=== PATIENT | female | born 1985 | race Caucasian/White ===

== ENCOUNTER 2022-03-21 07:34 | Outpatient (CLI) | payer OTHER, SELFPAY ==
[2022-03-21 10:25] LABS: Albumin* 4.1 g/dL (3.3-5.0)
[2022-03-21 10:26] LABS: Chloride* 108 mmol/L (96-114); Potassium* 4.3 mmol/L (3.6-5.1); Sodium* 138 mmol/L (135-149)
[2022-03-21 10:28] LABS: Aspartate Amino Transferase* 20 U/L (12-35); Bilirubin Total* 0.5 mg/dL (0.1-1.5); Carbon Dioxide* 21 mmol/L (20-32); Cholesterol* 143 mg/dL (90-199); Creatinine* 0.5 mg/dL (0.5-1.5); Estimated Glomerular Filt Rate 126 ml/min
[2022-03-21 10:29] LABS: Alanine Aminotransferase* 17 U/L (4-35); Alkaline Phosphatase* 80 U/L (40-150); Blood Urea Nitrogen* 10 mg/dL (5-24); Calcium* 9.1 mg/dL (8.4-10.6); Glucose* 96 mg/dL (60-115); HDL Cholesterol* 74 mg/dL (>=50); LDL Cholesterol Calculated 62 mg/dL (<100); Triglycerides* 34 mg/dL (40-149)
[2022-03-21 11:53] LABS: Chlamydia DNA Amplified* NOT DETECTED (No Detected); GC DNA Amplified* NOT DETECTED (No Detected)
== END 2022-03-21 07:35 | disposition home or self-care (01) ==
PROVIDERS: PCP Family Medicine; Visit Provider Family Medicine
DX: Z01.419 Encounter for gynecological examination (general) (routine) without abnormal findings (principal); R53.83 Other fatigue; E03.9 Hypothyroidism, unspecified; N89.8 Other specified noninflammatory disorders of vagina; E66.01 Morbid (severe) obesity due to excess calories; F41.9 Anxiety disorder, unspecified
CPT/HCPCS: 80053; 80061; 84443; 87491; 87591

== ENCOUNTER 2023-03-12 15:30 | Outpatient (CLI) | payer OTHER, SELFPAY | END 2023-03-12 15:31 | disposition home or self-care (01) | LOC: NFLDREF 03-14 10:27 | PROVIDERS: PCP Family Medicine; Referring Provider Family Medicine; Visit Provider Family Medicine | DX: E03.9 Hypothyroidism, unspecified (principal); R53.83 Other fatigue; F41.9 Anxiety disorder, unspecified; B39.9 Histoplasmosis, unspecified; H32 Chorioretinal disorders in diseases classified elsewhere; E66.01 Morbid (severe) obesity due to excess calories; Z68.42 Body mass index [BMI] 45.0-49.9, adult; Z13.220 Encounter for screening for lipoid disorders; Z13.1 Encounter for screening for diabetes mellitus; Z13.6 Encounter for screening for cardiovascular disorders | CPT/HCPCS: 80061; 82947; 84443 ==

== ENCOUNTER 2024-04-16 15:00 | Outpatient (CLI) | payer BC, SELFPAY | END 2024-04-16 15:01 | disposition home or self-care (01) | LOC: NFLDREF 04-25 23:47 | PROVIDERS: PCP Family Medicine; Referring Provider Family Medicine; Visit Provider Family Medicine | DX: E03.9 Hypothyroidism, unspecified (principal); R53.83 Other fatigue; E78.5 Hyperlipidemia, unspecified; Z13.6 Encounter for screening for cardiovascular disorders | CPT/HCPCS: 80053; 80061; 84443 ==

== ENCOUNTER 2024-11-23 13:25 | Outpatient (CLI) | payer BC, SELFPAY ==
--- NOTE | 2024-11-23 13:45 | CRLHL7_ITS ---
For Patients: As a result of the Century Cures Act, medical imaging exams and procedure reports are released immediately into your electronic medical record. You may view this report before your referring provider. If you have questions, please contact your health care provider. INDICATION: Abnormal uterine bleeding COMPARISON: None. TECHNIQUE: 2D liang-scale and color Doppler images were acquired of the pelvis using a transabdominal and transvaginal approach. Transvaginal imaging performed to better visualize the endometrial stripe and ovaries. FINDINGS: Sonographic images demonstrate a normal size and smooth outer contour of the uterus. Uterus measures 8.5 cm in length by 4.4 cm in AP diameter by 5.7 cm in transverse dimension. The myometrium has a normal uniform echotexture. The endometrial lining measures 9 mm in composite thickness. The right ovary measures 3.0 x 1.7 x 2.1 cm in size and the left ovary measures 4.8 x 2.6 x 3.6 cm. The ovaries demonstrate normal arterial and venous blood flow on color Doppler analysis. Trace free fluid. Simple circumscribed left ovarian cyst measures 4.8 x 2.6 x 3.6 cm. IMPRESSION: Endometrial thickness 9 millimeters. Simple left ovarian cyst measures 4.8 cm. Dictated by Nitin Stanford MD @ 11/23/2024 3:51:23 PM (Electronically Signed)
== END 2024-11-23 13:26 | disposition home or self-care (01) ==
LOC: US 13:26
PROVIDERS: PCP Family Medicine; Visit Provider Obstetrics & Gynecology
DX: N93.9 Abnormal uterine and vaginal bleeding, unspecified (principal); R93.89 Abnormal findings on diagnostic imaging of other specified body structures; N83.292 Other ovarian cyst, left side; N97.9 Female infertility, unspecified
CPT/HCPCS: 76830; 76856

== ENCOUNTER 2024-12-23 15:29 | Outpatient (CLI) | payer BC, SELFPAY | END 2024-12-23 15:30 | disposition home or self-care (01) | PROVIDERS: PCP Family Medicine; Visit Provider Obstetrics & Gynecology | DX: N97.9 Female infertility, unspecified (principal); N93.9 Abnormal uterine and vaginal bleeding, unspecified | CPT/HCPCS: 82670; 83001; 83498; 84146; 84270; 84402; 84403; 84443 ==

== ENCOUNTER 2024-12-30 10:44 | Outpatient (CLI) | payer BC, SELFPAY ==
--- NOTE | 2024-12-30 11:15 | CRLHL7_ITS ---
For Patients: As a result of the Century Cures Act, medical imaging exams and procedure reports are released immediately into your electronic medical record. You may view this report before your referring provider. If you have questions, please contact your health care provider. Indication: Infertility Technique: Routine hysterosalpingogram performed. Fluoroscopic time 27 seconds. IMPRESSION: Normal patency of the fallopian tubes bilaterally. No endometrial canal filling defect. Normal exam. Dictated by Nitin Stanford MD @ 12/30/2024 12:43:45 PM (Electronically Signed)
--- NOTE | 2024-12-30 12:18 | P.GYNPRC_ITS ---
Procedure Note Time Seen by Provider: 11:30 Date of procedure: 12/30/24 [address] [facility] bill your pro fee for this procedure?: Yes Procedure Description: DATE: 12/30/24 PREPROCEDURE DIAGNOSIS: Secondary infertility POSTPROCEDURE DIAGNOSIS: 1. Secondary Infertility 2. Patent fallopian tubes bilaterally. NAME OF PROCEDURE: Hysterosalpingogram. ANESTHESIA: None. COMPLICATIONS: None. PROCEDURE: After obtaining verbal consent, the patient was placed in the dorsal lithotomy position on the x-ray table. An open-sided bivalve speculum was introduced into the vagina and the cervix easily visualized. The cervix and vagina were then prepped with Betadine. The anterior lip of the cervix was grasped with a single-tooth tenaculum for traction. Os binder/cervical dilator used: No. A balloon tipped double-lumen catheter was then gently inserted through the cervical opening into the uterine cavity to the level of the fundus. The balloon was insufflated with 3 mL of air. The tenaculum and speculum were removed. The patient was repositioned in the supine position, covered, and the radiologist was called to the room. A hysterosalpingogram was then performed. A total of 20 cc of Optiray 300 water soluble contrast dye was injected through the double-lumen catheter under moderate pressure. There was immediate fill of the uterine cavity to the cornua and immediate fill of both fallopian tubes and free spillage of dye on both sides The balloon was deflated. The catheter was removed. The patient tolerated the procedure well, though she did have moderate cramping discomfort during and just after the procedure. She was discharged to home in stable condition and make an appointment with her physician to review all of her lab results and procedure results.
== END 2024-12-30 10:45 | disposition home or self-care (01) ==
LOC: RAD 10:45
PROVIDERS: PCP Family Medicine; Visit Provider Obstetrics & Gynecology
DX: N97.9 Female infertility, unspecified (principal)
CPT/HCPCS: 58340; 74740; A4649; Q9967

== ENCOUNTER 2025-01-07 14:47 | Outpatient (CLI) | payer BC, SELFPAY ==
--- NOTE | 2025-01-07 15:00 | CRLHL7_ITS ---
For Patients: As a result of the Century Cures Act, medical imaging exams and procedure reports are released immediately into your electronic medical record. You may view this report before your referring provider. If you have questions, please contact your health care provider. INDICATION: Excessive and frequent menstruation COMPARISON: 11/23/2024 TECHNIQUE: 2D liang-scale and color Doppler images were acquired of the pelvis using a transabdominal and transvaginal approach. Transvaginal imaging performed to better visualize the endometrial stripe and ovaries. FINDINGS: Sonographic images demonstrate a normal size and smooth outer contour of the uterus. Uterus measures 8.8 cm in length by 5.0 cm in AP diameter by 5.9 cm in transverse dimension. The myometrium has a normal uniform echotexture. The endometrial lining measures 16 mm in composite thickness. The right ovary measures 3.5 x 1.9 x 2.2 cm in size and the left ovary measures 4.5 x 2.5 x 2.9 cm. The ovaries demonstrate normal arterial and venous blood flow on color Doppler analysis. Simple circumscribed left ovarian cyst is present which measures 3.7 x 2.3 x 2.7 cm. Anechoic cyst in the left adnexa measures 1.7 x 1.5 x 1.3 cm. Moderate left adnexal free fluid is present. IMPRESSION: Endometrial thickness 16 millimeters. Simple left ovarian cyst measures 3.7 cm, previously measuring 4.8 cm. Simple left adnexal cyst measures 1.7 cm. Moderate left adnexal free fluid is present. Dictated by Nitin Stanford MD @ 01/10/2025 10:58:12 AM (Electronically Signed)
== END 2025-01-07 14:48 | disposition home or self-care (01) ==
LOC: US 14:48
PROVIDERS: PCP Family Medicine; Visit Provider Obstetrics & Gynecology
DX: N92.0 Excessive and frequent menstruation with regular cycle (principal); R93.89 Abnormal findings on diagnostic imaging of other specified body structures; N83.292 Other ovarian cyst, left side
CPT/HCPCS: 76830

== ENCOUNTER 2025-01-10 14:36 | Outpatient (CLI) | payer BC, SELFPAY | END 2025-01-10 14:37 | disposition home or self-care (01) | LOC: NFLDREF 01-21 00:14 | PROVIDERS: PCP Family Medicine; Referring Provider Family Medicine; Visit Provider Obstetrics & Gynecology | DX: N97.9 Female infertility, unspecified (principal) | CPT/HCPCS: 84144 ==

== ENCOUNTER 2025-03-02 11:27 | Outpatient (CLI) | payer BC, SELFPAY | END 2025-03-02 11:28 | disposition home or self-care (01) | LOC: NFLDREF 03-08 17:44 | PROVIDERS: PCP Family Medicine; Referring Provider Family Medicine; Visit Provider Obstetrics & Gynecology | DX: E03.9 Hypothyroidism, unspecified (principal) | CPT/HCPCS: 84443 ==